=== PATIENT | female | born 1995 | race Caucasian/White ===

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

== ENCOUNTER → 2017-11-24 | Outpatient (CLI) | payer BC ==
[~2017-11-24] MED LIST changes: +GADOBUTROL 7.5 MMOL/7.5 ML (GADAVIST) VIAL IV ONE
--- NOTE | 2017-11-24 10:41 | Diagnostic Imaging Report ---
CLINICAL INDICATION: Patient has constant headaches with dizzy spells. Exam: MRI of the brain performed without and with 6 cc of Gadavist IV contrast. Sequences include axial DWI, ADC map, axial gradient echo, axial T2, axial FLAIR, axial T1, axial T1 post IV contrast, coronal T1 fat-sat post IV contrast, and sagittal T1 post IV contrast. Comparison: CT scan of brain without contrast dated 03/14/2014. Findings: There is no evidence of acute cerebral infarct, intracranial hemorrhage, or gross mass effect. The brain parenchymal volume appears appropriate for patient's age. There is normal laws-white matter distinction. There is no significant midline shift or herniation. The [place] vascular structures show no gross abnormality as visualized. There is no evidence of hydrocephalus. The basal cisterns are unremarkable. The skull, extracranial soft tissue, and orbits are unremarkable. There is moderate mucosal thickening involving both maxillary sinuses and ethmoid sinus. There is mild mucosal thickening involving frontal sinus and sphenoid sinus. Temporal bones show no significant abnormality. IMPRESSION: Mild to moderate diffuse paranasal sinus disease. Otherwise, unremarkable MRI of the brain. Dictated by: Dictated on workstation # [id number]
== END ==
LOC: RAD 08:21
PROVIDERS: ATTEND Nurse Practitioner Family
DX: J32.8 Other chronic sinusitis (principal)
CPT/HCPCS: 70553

== ENCOUNTER → 2019-07-31 | Outpatient (CLI) | payer BC ==
[~2019-07-31] MED LIST changes: -GADOBUTROL 7.5 MMOL/7.5 ML (GADAVIST) VIAL IV ONE
--- NOTE | 2019-07-31 17:25 | Diagnostic Imaging Report ---
INDICATION: Right lower rib pain x1 month, no known injury. TECHNIQUE: Three views right ribs, 5:14 PM. CORRELATION STUDY: None FINDINGS: There is no acute displaced right rib fracture. Right lung field is clear. No infiltrate, effusion or pneumothorax. IMPRESSION: 1. Negative examination right ribs. Dictated by: Dictated on workstation # [id number]
== END ==
LOC: RAD 15:52
PROVIDERS: ATTEND Nurse Practitioner Family
DX: R07.81 Pleurodynia (principal)
CPT/HCPCS: 71100

== ENCOUNTER → 2020-06-11 | Outpatient (CLI) | payer BC ==
--- NOTE | 2020-06-11 14:34 | Diagnostic Imaging Report ---
PROCEDURE: CT abdomen and pelvis without contrast. TECHNIQUE: Multiple contiguous axial images were obtained through the abdomen and pelvis without the use of intravenous contrast. Auto Exposure Controls were utilized during the CT exam to meet ALARA standards for radiation dose reduction. INDICATION: Abdominal and pelvic pain. No prior studies are available for comparison. Lung bases are clear. Liver and gallbladder are unremarkable. Pancreas and spleen are unremarkable. No adrenal mass is detected. No definite renal calculi or hydronephrosis is identified. Aorta is non-aneurysmal. Small and large bowel loops are normal caliber. There is no obstruction. No free fluid or fluid collection is identified. Uterus is unremarkable. There is questionable cyst in the right adnexa, indeterminate. No inflammatory changes are seen. Bony structures are nonacute. IMPRESSION: Unremarkable noncontrast CT of the abdomen and pelvis apart from questional cyst in the right adnexa. This can be further evaluated with pelvic sonography if not already performed. No acute feature is detected. Dictated by: Dictated on workstation # [id number]
== END ==
LOC: RAD 14:15
PROVIDERS: ATTEND Urology
DX: R10.2 Pelvic and perineal pain (principal)
CPT/HCPCS: 74176